=== PATIENT | male | born 1960 | race Caucasian/White ===

== ENCOUNTER → 2025-02-16 15:35 | Outpatient (REF) | payer BC, SELFPAY | LOC: HWRCS 15:35 | PROVIDERS: ATTENDING PHYSICIAN Internal Medicine Cardiovascular Disease; FAMILY PHYSICIAN Family Medicine | DX: I35.0 Nonrheumatic aortic (valve) stenosis (principal) | CPT/HCPCS: 93306 ==

== ENCOUNTER → 2025-06-03 13:53 | Outpatient (REF) | payer BC, SELFPAY | LOC: RCS 13:53 | PROVIDERS: ATTENDING PHYSICIAN Internal Medicine Cardiovascular Disease; FAMILY PHYSICIAN Family Medicine | DX: I25.10 Atherosclerotic heart disease of native coronary artery without angina pectoris (principal); Z95.5 Presence of coronary angioplasty implant and graft; R07.89 Other chest pain; I35.0 Nonrheumatic aortic (valve) stenosis | CPT/HCPCS: 93017; 93350; Q9950 ==